=== PATIENT | female | born 1960 | race Hispanic/Latino ===

== ENCOUNTER 2016-12-14 09:01 | Emergency (ER) | payer OTHER ==
[~2016-12-14] VITALS: Ht 157.5 cm; Wt 86.4 kg
[~2016-12-14 09:01] MED LIST: BENADRYL50 MG PO; DELTASONE20 M1 PO; DEPAKOTE125 MG PO; FLEXERIL10 MG PO; INDOCIN50 MG PO; MOTRIN600 MG PO; NAPROSYN500 MG PO; NORCO 7.5/321 TABLET PO; PENICILLIN V PO; PEPCID40 MG PO; PERCOCET 5/31 TABLET PO; PREDNISONE20 MG PO; SEROQUEL200 MG PO; VALTREX1000 MG PO; VIBRAMYCIN100 MG PO
[2016-12-14] MEDS ORDERED: MOBIC7.5 MG PO (10:50)
[2016-12-14 11:44] VITALS: BP 156/83
== END 2016-12-14 11:46 | disposition home or self-care (01) ==
LOC: EME 09:01
DX: M70.61 Trochanteric bursitis, right hip (principal)
CPT/HCPCS: 72170; 73552; 99281; 99284